=== PATIENT | female | born 1960 | race Caucasian/White ===

== ENCOUNTER 2019-08-24 11:16 | Outpatient (CLI) | payer OTHER | END 2019-08-24 23:59 | disposition home or self-care (01) | LOC: CFH 11:16 | PROVIDERS: ATTEND Obstetrics & Gynecology | DX: Z12.31 Encounter for screening mammogram for malignant neoplasm of breast (principal) | CPT/HCPCS: 77067 ==

== ENCOUNTER 2019-10-11 17:28 | Emergency (ER) | payer OTHER ==
[~2019-10-11] VITALS: Ht 177.8 cm; Wt 70.0 kg
--- NOTE | 2019-10-11 17:36 | NUR ---
EKG PROCEDURE PERFORMED BY TECH. JUAREZ RN PRESENT. PT TOLERATED WITH NO COMPLICATIONS.
--- NOTE | 2019-10-11 18:16 | NUR ---
PT STATES SHE HAS BEEN FEELING FATIGUED W SOB FOR 1 WEEK AFTER HIKING. DENIES CP. SOME N/V. RESP EVEN AND UNLABORED. GREEN PLUMBER APPLIED. VSS. UA COLLECTED
[2019-10-11 18:22] LABS: MICROSCOPIC NOT IND
[2019-10-11 18:45] LABS: BASOPHILS # (AUTO) 0.02 x10^3/uL (0-0.1); BASOPHILS % (AUTO) 0 % (0-1); EOSINOPHILS # (AUTO) 0.02 x10^3/uL (0-0.4); EOSINOPHILS % (AUTO) 1 % (1-7); LYMPHOCYTES # (AUTO) 0.84 x10^3/uL (1-3.4); LYMPHOCYTES % (AUTO) 17 % (22-44); MD NO; MEAN CORPUSCULAR HEMOGLOBIN 31.7 pg (27.0-34.8); MEAN CORPUSCULAR HGB CONC 33.6 g/dL (32.4-35.8); MEAN PLATELET VOLUME 6.9 fL (7.4-10.4); MONOCYTES # (AUTO) 0.86 x10^3/uL (0.2-0.8); MONOCYTES % (AUTO) 17 % (2-9); NEUTROPHILS # (AUTO) 3.24 x10^3/uL (1.8-6.8); NEUTROPHILS % (AUTO) 65 % (42-75); PLATELET COUNT 237 x10^3/uL (130-400); RED BLOOD COUNT 3.71 x10^6/uL (3.82-5.3); RED CELL DISTRIBUTION WIDTH 12.2 % (9.6-15.2)
--- NOTE | 2019-10-11 18:49 | NUR ---
REPORT TO [facility]
[2019-10-11 18:58] LABS: ALBUMIN 3.2 g/dL (3.4-5.0); ANION GAP 10 mmol/L (5-15); CALCIUM 8.1 mg/dL (8.5-10.1); CHLORIDE 102 mmol/L (98-107)
[2019-10-11 19:05] LABS: ALANINE AMINOTRANSFERASE 31 U/L (12-78); ALKALINE PHOSPHATASE 77 U/L (45-117); BILIRUBIN,TOTAL 0.4 mg/dL (0.2-1.0); CREATININE 0.81 mg/dL (0.55-1.02); TOTAL PROTEIN 7.2 g/dL (6.4-8.2); TROPONIN I < 0.015 ng/mL (0.000-0.045)
[2019-10-11 19:25] LABS: FREE T4 (FREE THYROXINE) 1.09 ng/dL (0.76-1.46)
--- NOTE | 2019-10-11 19:44 | NUR ---
ALL RESULTS BACK CHART UP FOR RECHECK
--- NOTE | 2019-10-11 19:51 | NUR ---
AT BEDSIDE FOR REASSESSMENT
[2019-10-11 19:52] VITALS: BP 128/70
== END 2019-10-11 20:25 | disposition home or self-care (01) ==
LOC: ED 20:00
DX: R53.1 Weakness (principal); R06.02 Shortness of breath; R53.83 Other fatigue; R94.31 Abnormal electrocardiogram [ECG] [EKG]
CPT/HCPCS: 36415; 71045; 80053; 81003; 83735; 83880; 84439; 84443; 84484; 85025; 93005; 99285